=== PATIENT | male | born 1980 | race Caucasian/White ===

== ENCOUNTER → 2018-06-12 | Outpatient (CLI) | payer OTHER ==
--- NOTE | 2018-06-12 11:28 | CARD ---
MR#: [id number] Date of Study: 06/12/2018 Ordering Physician: CIARA CARRIZALES, Referring Physician: CIARA CARRIZALES Tech: Mattie Sanchez GRECIA APPROVED REPORT EXAM: Two-dimensional and M-mode echocardiogram with Doppler and color Doppler. Other Information Quality : GoodHR: 45bpm Rhythm : Bradycardia INDICATION Chest Pain 2D DIMENSIONS RVDd3.6 (2.9-3.5cm)Left Atrium(2D)3.0 (1.6-4.0cm) IVSd0.8 (0.7-1.1cm)Aortic Root(2D)3.1 (2.0-3.7cm) LVDd4.7 (3.9-5.9cm)LVOT Diameter1.9 (1.8-2.4cm) PWd0.9 (0.7-1.1cm)LVDs2.8 (2.5-4.0cm) FS (%) 39.9 %SV71.6 ml LVEF(%)69.0 (>50%) M-Mode DIMENSIONS Left Atrium(MM)3.09 (2.5-4.0cm)Aortic Root3.47 (2.2-3.7cm) Aortic Valve AoV Peak Armaan.110.5cm/sAoV VTI23.3cm AO Peak GR.4.9mmHgLVOT Peak Armaan.73.4cm/s AO Mean GR.2mmHgAVA (VMAX)1.89cm2 ESTEFANI (VTI)1.90cm2 Mitral Valve MV E Ryjfxmdp02.6cm/sMV DECEL TYNH936ps MV A Lxhwkdic22.6cm/sE/A Ratio1.4 MV A Hwllavgl557vw Pulmonary Valve PV Peak Lghepdjy35.2cm/s Tricuspid Valve TR P. Hbhzsgoc645ky/sRAP MTQDZQNF7ulJr TR Peak Gr.24rmGvDYKJ10lbSf LEFT VENTRICLE The left ventricle is normal size. There is normal left ventricular wall thickness. The left ventricu lar systolic function is normal. The Ejection Fraction is 65-70%. There is normal LV segmental wall m otion. The left ventricular diastolic function and filling is normal for age. RIGHT VENTRICLE The right ventricle is normal size. There is normal right ventricular wall thickness. The right ventr icular systolic function is normal. ATRIA The left atrium size is normal. The right atrium size is normal. The interatrial septum is intact wit h no evidence for an atrial septal defect or patent foramen ovale as noted on 2-D or Doppler imaging. AORTIC VALVE The aortic valve is normal in structure and function. The aortic valve is trileaflet. Doppler and Col or Flow revealed no significant aortic regurgitation. There is no significant aortic valvular stenosi s. There is no aortic valvular vegetation. MITRAL VALVE The mitral valve is normal in structure and function. There is no evidence of mitral valve prolapse. There is no mitral valve stenosis. Doppler and Color-flow revealed trace mitral regurgitation. TRICUSPID VALVE The tricuspid valve is normal in structure and function. Doppler and Color Flow revealed trace tricus pid regurgitation. The PA pressure was estimated at 24 mmHg. There is no tricuspid valve prolapse or vegetation. There is no tricuspid valve stenosis. PULMONIC VALVE The pulmonary valve is normal in structure and function. Doppler and Color Flow revealed trace pulmon ic valvular regurgitation. There is no pulmonic valvular stenosis. GREAT VESSELS The aortic root is normal in size. The ascending aorta is normal in size. The IVC is normal in size a nd collapses >50% with inspiration. PERICARDIAL EFFUSION There is no evidence of significant pericardial effusion. Critical Notification Critical Value: No <Conclusion> The left ventricular systolic function is normal. The Ejection Fraction is 65-70%. There is normal LV segmental wall motion. Trace mitral regurgitation. Trace tricuspid regurgitation. The PA pressure was estimated at 24 mmHg. There is no evidence of significant pericardial effusion. Signed by : Tom Clayton, Electronically Approved : 06/12/2018 11:28:03
== END | disposition home or self-care (01) ==
LOC: ECHO 10:28
PROVIDERS: ATTEND Registered Nurse
DX: R07.9 Chest pain, unspecified (principal)
CPT/HCPCS: 93306

== ENCOUNTER → 2018-06-28 | Outpatient (CLI) | payer OTHER ==
[~2018-06-28] MED LIST: IOHEXOL 300 MG/ML 100ML VIAL. IV ONE
--- NOTE | 2018-06-28 10:11 | RAD ---
IVP, 06/28/2018: History: Left-sided pain The preliminary abdominal image demonstrates a nonspecific gas pattern. No urinary tract calculi are evident. Following IV injection of iodinated contrast material there was prompt appearance of contrast in the renal collecting systems in a symmetric pattern. No renal mass is evident. The renal collecting systems and ureters are not dilated. The urinary bladder shows no abnormality. IMPRESSION: No significant abnormality is detected.
== END | disposition home or self-care (01) ==
LOC: RAD 10:06
PROVIDERS: ATTEND Internal Medicine Gastroenterology
DX: N23 Unspecified renal colic (principal)
CPT/HCPCS: 74400; Q9967

== ENCOUNTER → 2018-07-25 | Outpatient (CLI) | payer OTHER ==
[~2018-07-25] MED LIST changes: +BARIUM SULFATE 60% 355 ML SUSP PO ONE; -IOHEXOL 300 MG/ML 100ML VIAL. IV ONE
--- NOTE | 2018-07-25 16:07 | RAD ---
EXAM: SMALL BOWEL SERIES. HISTORY: Left lower quadrant pain. COMPARISON: None. FINDINGS: A locum tenens radiograph of the abdomen demonstrates a normal bowel gas pattern. Barium contrast was administered orally and followed in its course through the small bowel and proximal colon with fluoroscopy and plain radiographs. 8 fluoroscopic images were obtained. Fluoroscopy time 1.1 minutes. Small bowel transit time was normal at less than one hour. There are no strictures or dilatation. The small bowel fold pattern appears normal. The terminal ileum is unremarkable. No clear abnormalities appreciated in the left lower quadrant by this technique. IMPRESSION: 1. Negative small bowel series. Electronically signed by: Oralia Ordoñez MD (07/25/2018 4:04 PM) [facility] [place]
== END | disposition home or self-care (01) ==
LOC: RAD 10:21
PROVIDERS: ATTEND Internal Medicine Gastroenterology
DX: R10.32 Left lower quadrant pain (principal)
CPT/HCPCS: 74250

== ENCOUNTER → 2018-09-04 | Day surgery (SDC) | payer OTHER ==
[~2018-09-04] MED LIST changes: -BARIUM SULFATE 60% 355 ML SUSP PO ONE; +IV RINGERS,LACTATED 1000ML 1,000 ML IV SCH; +LIDOCAINE 2% PF 5 ML VIAL. ONE; +PROPOFOL 20 ML IV ONE
[2018-09-04 17:23] VITALS: BP 122/72
--- NOTE | 2018-09-05 07:36 | CONS ---
DATE OF CONSULTATION: 09/04/2018 HISTORY OF PRESENT ILLNESS: This is a 38-year-old male with past medical history of noncontributory seen with persistent left lower quadrant abdominal pain associated with nausea, has been on weight loss. No diarrhea or constipation. CT scans x 2, colonoscopy and ultrasound have been unrevealing. Discomfort is less for only 20 minutes. No family history of renal colic was encountered with continued issues. He is here for further evaluation. PAST MEDICAL HISTORY: Noncontributory. ALLERGIES: None. MEDICATIONS: None. FAMILY AND SOCIAL HISTORY: He is a drinker, formerly used tobacco products, but does not at the present time. No previous surgical operations. PHYSICAL EXAMINATION: GENERAL: Reveals a well-nourished, well-developed male. VITAL SIGNS: Temperature is 98.3, pulse 60, respirations 18. HEENT: Normocephalic and atraumatic. Pupils and extraocular muscles are not tested. Sclerae anicteric. NECK: Supple. LUNGS: Clear. CARDIOVASCULAR: Reveals S1, S2 without S3, S4 or appreciable murmur. ABDOMEN: Soft abdomen with epigastric and left lower quadrant tenderness to deep palpation. EXTREMITIES: Reveals no cyanosis, clubbing or edema. IMPRESSION: Abdominal pain with nausea, etiology is to be determined. Upper endoscopy to assess for hernia, celiac disease, peptic ulcer disease, gastroparesis in view of his previous extensive evaluation. LESLEE KEMP MD DR: KHOA/juan david JOB#: [id number] / [id number]
--- NOTE | 2018-09-06 16:06 | PATHOLOGY ---
[facility] Accession Number: [id number] . 01 Material submitted: . duodenum - DUODENAL BIOPSY . 01 Clinical history: . Abdominal pain, nausea . 02 Diagnosis: Duodenal biopsies: - No significant pathologic abnormalities. (M:[facility] 09/06/2018) P/09/06/2018 . 02 Comment: Sections of the duodenal biopsy reveal segments of duodenal and small intestine mucosa. Where best oriented, the mucosal villi show no sprue-like changes or significant inflammatory changes. There is no evidence of eosinophilic enteritis. ([facility] 09/06/2018) . 02 Electronically signed: . Alex Cagle MD, Pathologist NPI- [id number] . 01 Gross description: . Received in formalin labeled "[place], duodenal BX, rule out celiac sprue and eosinophilic esophagitis," are multiple segments of sebastian soft tissue measuring 2.0 x 0.5 x 0.1 cm in aggregate dimensions. The specimen is filtered and entirely submitted in cassette A1. ([facility]; 09/05/2018) TOB/TOB . 02 Pathologist provided ICD-10: R10.9 . 02 CPT . 258938 Specimen Comment: A courtesy copy of this report has been sent to Specimen Comment: [phone], . Specimen Comment: Report sent to / DR CARRIZALES Performed at: 01 [facility] [address], [place] [id number] MD Julián Diaz MD Phone: [phone] Performed at: 02 [facility] [address] [place], [place] [id number] MD Alex Cagle MD Phone: [phone]
== END ==
LOC: ENDOS 15:50
PROVIDERS: ATTEND Internal Medicine Gastroenterology
DX: K31.89 Other diseases of stomach and duodenum (principal); Z72.89 Other problems related to lifestyle; Z87.891 Personal history of nicotine dependence
CPT/HCPCS: 43239; 88305; J2001; J2704